=== PATIENT | female | born 1970 | race Caucasian/White ===

== ENCOUNTER 2016-10-03 22:14 | Emergency (ER) | payer OTHER ==
[~2016-10-03] VITALS: Ht 160 cm; Wt 57.6 kg
[2016-10-03] MEDS ORDERED: ESTR25TD TD (22:31)
[2016-10-03] MEDS ORDERED: LEVO88TA3 PO (22:31)
[2016-10-03] MEDS ORDERED: METH10CO PO (22:31)
[2016-10-03] MEDS ORDERED: CYCL10TA PO (22:31)
[2016-10-03] MEDS ORDERED: VITA100037 PO (22:31)
[2016-10-03] MEDS ORDERED: BUPR15TA PO (22:31)
[2016-10-03] MEDS ORDERED: ASPI81TA85 PO (22:31)
[2016-10-03] MEDS ORDERED: PROG100C PO (22:31)
[2016-10-03] MEDS ORDERED: ATOR40TA PO (22:31)
[2016-10-03] MEDS ORDERED: TRAZ100T4 PO (22:31)
[2016-10-03 23:08] LABS: BASO % 0.2 % (0.0-1.0); EOS % 0.9 % (0.0-3.0); LARGE UNSTAINED CELL # 0.1 K/mm3 (0.0-0.4); LARGE UNSTAINED CELL % 1.9 % (0.0-4.0); LYMPH # 2.1 K/mm3 (1.5-4.5); LYMPH % 33.1 % (24.0-44.0); MEAN CORPUSCULAR HEMOGLOBIN 30.6 pg (27.0-33.0); MEAN CORPUSCULAR HGB CONC 33.5 g/dl (32.0-36.5); MEAN CORPUSCULAR VOLUME 91.3 fl (80.0-96.0); MONO # 0.3 K/mm3 (0.0-0.8); MONO % 4.4 % (0.0-5.0); NEUTROPHILS # 3.6 K/mm3 (1.8-7.7); NEUTROPHILS % 59.6 % (36.0-66.0); PLATELET COUNT, AUTOMATED 229 k/mm3 (150-450); RED CELL DISTRIBUTION WIDTH 12.8 % (11.5-14.5); WHITE BLOOD COUNT 6.1 K/mm3 (4.0-10.0)
[2016-10-03 23:26] LABS: ANION GAP 4 MEQ/L (8-16); BLOOD UREA NITROGEN 5 MG/DL (7-18); CALCIUM LEVEL 8.2 MG/DL (8.5-10.1); CARBON DIOXIDE LEVEL 31 MEQ/L (21-32); CHLORIDE LEVEL 105 MEQ/L (98-107); CREATININE FOR GFR 0.65 MG/DL (0.55-1.02); GLOMERULAR FILTRATION RATE > 60.0 (>58); GLUCOSE, FASTING 86 MG/DL (70-105); POTASSIUM SERUM 3.6 MEQ/L (3.5-5.1); SODIUM LEVEL 140 MEQ/L (136-145)
[2016-10-04 00:04] VITALS: BP 124/79
--- NOTE | 2016-10-04 06:07 | ECGEPIP ---
Stationary ECG Study [facility] - ED Test Date: 2016-10-03 Pat Name: GEOFFREY GERMAN Department: Room: - Gender: F Service Engine Repairer: tania : 1970 Requested By: NAM Melton Order Number: [id number] Reading MD: Ilya Grewal Measurements Intervals Brandon Rate: 70 P: 51 CO: 183 QRS: 58 QRSD: 97 T: 45 QT: 428 QTc: 462 Interpretive Statements SINUS RHYTHM INC. RBBB NO PRIORS Electronically Signed On 10-04-2016 6:07:00 EDT by Ilya Grewal
--- NOTE | 2016-10-04 08:17 | REP ---
Portable chest: Single view. History: Chest pain or. Comparison study: No comparison study. No Findings: Lungs are well inflated and clear. The pleural angles are sharp. Heart is not enlarged. Pulmonary vasculature is not increased. Mild degenerative changes seen at the shoulders. Impression: No active disease. Signed by Donte Oreilly MD 10/04/2016 08:09 A
== END 2016-10-04 02:57 | disposition home or self-care (01) ==
LOC: M ED 23:48
DX: R07.89 Other chest pain (principal)

== ENCOUNTER → 2018-10-26 | Outpatient (CLI) | payer OTHER ==
[~2018-10-26] MED LIST: ASPI81TA85 PO; ATOR40TA75 PO; BUPR15TA PO; CYCL10TA PO; ESTR25TD TD; ISOVUE-370 76% 100ML VIAL (Q9967) As Ordered ONE; LEVO88TA3 PO; METH10CO PO; PROG100C PO; TRAZ-163 PO; VITA100067 PO
--- NOTE | 2018-10-27 05:35 | REP ---
Clinical: Chest pain and shortness of breath. Technique: Axial contrast enhanced images from the thoracic inlet to the upper abdomen using pulmonary embolus technique with multiplanar re-formations. 100 ml Isovue 270 intravenous contrast material administered without complication. Findings: The pulmonary vasculature is appropriately enhanced and no filling defects are identified to suggest pulmonary embolus. The thoracic aorta is without aneurysm or dissection. Heart and pericardium appear normal. The bilateral lung morales demonstrate mild posterobasilar dependent changes without consolidation, significant nodule or mass lesion. No pleural effusion. No pneumothorax. Tracheobronchial tree is patent. No adenopathy. Surrounding musculoskeletal structures are intact. Impression: 1. Normal contrast enhanced chest CT using angiographic technique. 2. No evidence for pulmonary embolus. Normal thoracic aorta without aneurysm or dissection. 3. No acute mediastinal or pleuroparenchymal process. Electronically Signed by David García MD 10/27/2018 05:26 A
== END ==
LOC: M RAD 15:05
PROVIDERS: ATTEND Nurse Practitioner
DX: R06.02 Shortness of breath (principal); R07.89 Other chest pain
CPT/HCPCS: 71275; Q9967

== ENCOUNTER → 2019-01-23 | Outpatient (CLI) | payer OTHER ==
[~2019-01-23] MED LIST changes: -ISOVUE-370 76% 100ML VIAL (Q9967) As Ordered ONE; -PROG100C PO; +PROG1CAP8 PO
--- NOTE | 2019-01-23 11:29 | REP ---
Clinical: Hypothyroidism. Technique: Real time kaufman scale and color evaluation using curved array transducer. Findings: The thyroid gland is essentially normal in contour, size, and parenchymal echogenicity. Right lobe measures 4.5 x 1.1 x 0.8 cm. Isthmus measures 3.0 mm in width. Left lobe measures 3.7 x 1.2 x 0.8 cm and includes a 2.4 mm benign appearing cyst. Impression: Essentially normal thyroid ultrasound.
--- NOTE | 2019-01-25 08:40 | DEXA ---
AP SPINE L1 - L4 1.449 2.1 2.3 LT FEMUR TOTAL 1.029 0.2 0.6 LT NECK 0.978 -0.4 0.3 RT FEMUR TOTAL 1.050 0.3 0.7 RT NECK 1.007 -0.2 0.5 TOTAL BODY TOTAL OTHER COMMENTS: Normal bone densitometry of the spine and hips. FOLLOW-UP: Recommendation for the next bone density exam: 5 years. SORAYA
== END ==
LOC: M WHC 09:49
PROVIDERS: ATTEND Nurse Practitioner Primary Care
DX: E03.9 Hypothyroidism, unspecified (principal); M81.0 Age-related osteoporosis without current pathological fracture

== ENCOUNTER → 2019-02-21 | Outpatient (CLI) | payer OTHER ==
[2019-02-21 13:53] LABS: FREE T4 0.94 NG/DL (0.76-1.46)
[2019-02-21 13:54] LABS: CORTISOL BASELINE 5.9 UG/DL (4.3-22.4); TOTAL 25(OH) VITAMIN D 32.3 NG/ML (30.0-100.0)
[2019-02-21 13:55] LABS: FOLLICLE STIMULATING HORMONE 88.2 mIU/mL; LUTEINIZING HORMONE 61.1 mIU/mL; PROLACTIN 7.6 NG/ML; THYROID PEROXIDASE ANTIBODY < 28.0 U/ML (<60.0)
== END ==
LOC: M LAB 12:23
PROVIDERS: ATTEND Nurse Practitioner Primary Care
DX: E03.9 Hypothyroidism, unspecified (principal); E55.9 Vitamin D deficiency, unspecified

== ENCOUNTER → 2020-05-07 | Outpatient (CLI) | payer OTHER ==
[~2020-05-07] MED LIST changes: -ASPI81TA85 PO; +ASPI81TA86 PO; +CYCL-707 PO; -CYCL10TA PO; -TRAZ-163 PO; +TRAZ-257 PO
--- NOTE | 2020-05-07 19:10 | REPVR ---
PROCEDURE INFORMATION: Exam: MR Cervical Spine Without Contrast Exam date and time: 05/07/2020 6:48 PM Age: 49 years old Clinical indication: Pain; Cervicalgia; Additional info: Radiculopathy, cervical region TECHNIQUE: Imaging protocol: Multiplanar magnetic resonance images of the cervical spine without contrast. COMPARISON: SOFT TISSUE H/N THYROID US 01/23/2019 9:04 AM FINDINGS: Nonspecific straightening of the cervical lordosis. Vertebral body height and AP alignment is preserved. Multilevel disc desiccation with mild disc space narrowing. No evidence of discitis/osteomyelitis. There is mild degenerative endplate signal. No pathologic cord signal. No epidural fluid collection. C2-C3: No significant central or foraminal stenosis. C3-C4: No significant central canal stenosis. Mild uncinate spurring contributes to mild left foraminal stenosis. C4-C5: Kipa-ks-nsovoqpk disc osteophyte complex with bilateral uncinate spurring. There is qasz-oz-vebqriqs central canal stenosis, qcbb-al-shbwkmrb right foraminal stenosis and moderate left foraminal stenosis. C5-C6: Vuoa-mv-yjjcswpq disc osteophyte complex with superimposed small caudally migrating extrusion. There is bilateral facet joint arthropathy. Findings result in moderate central canal stenosis and moderate to severe bilateral foraminal stenosis. C6-C7: Efew-zk-wjsxiasa disc osteophyte complex with uncinate spurring greater on the left. There is mild central canal stenosis and severe left foraminal stenosis. C7-T1: No significant central or foraminal stenosis. IMPRESSION: 1. Degenerative findings as above including mild to moderate central canal stenosis at C4-C5, moderate central canal stenosis at C5-C6 and mild central canal stenosis at C6-C7. 2. No pathologic cord signal. Electronically signed by: Lucas Fischer On 05/07/2020 19:10:21 PM
== END ==
LOC: M RAD 17:52
PROVIDERS: ATTEND Pain Medicine Interventional Pain Medicine
DX: M54.12 Radiculopathy, cervical region (principal); M25.78 Osteophyte, vertebrae; M48.02 Spinal stenosis, cervical region

== ENCOUNTER → 2020-08-29 | Outpatient (CLI) | payer OTHER ==
--- NOTE | 2020-08-29 16:27 | REP ---
INDICATION: POSTMENOPAUSAL BLEEDING COMPARISON: None. TECHNIQUE: Transabdominal pelvic ultrasound followed by transvaginal examination for better evaluation of the endometrium and adnexa. FINDINGS: Bladder is unremarkable and measures 8.6 x 11.7 x 5.0 cm. Normal anteverted uterus measures 8.5 x 3.4 x 3.9 cm. The endometrial complex measures 6 mm thickness. 10 mm and 7 mm nabothian cysts at the cervix and lower uterine segment noted respectively. Bilateral ovaries are not visualized on either transabdominal or transvaginal imaging. No pelvic fluid or adnexal mass lesion. IMPRESSION: Ovaries not visualized. Small nabothian cysts up to 10 mm. No further abnormality appreciated. <Electronically signed by David García > 08/29/20 [id number]
== END ==
LOC: M RAD 15:44
PROVIDERS: ATTEND Obstetrics & Gynecology
DX: N95.0 Postmenopausal bleeding (principal)

== ENCOUNTER → 2020-11-19 | Outpatient (CLI) | payer OTHER ==
--- NOTE | 2020-11-19 17:28 | REP ---
INDICATION: LEFT LEG SWELLING TENDERNESS R/O DVT. COMPARISON: None. TECHNIQUE: Left lower extremity duplex venous sonography. Scanning is performed from the groin to the ankle. FINDINGS: The deep veins are anechoic and fully compressible from the groin to the ankle in the left lower extremity. Color flow imaging is homogeneous. Spectral Doppler interrogation demonstrates intact respiratory variation in flow and normal manual augmentation of flow. There is no evidence of deep vein thrombosis. IMPRESSION: Negative left lower extremity duplex venous ultrasound. No evidence of deep vein thrombosis. <Electronically signed by Qamar Oreilly > 11/19/20 [id number]
== END ==
LOC: M RAD 15:58
PROVIDERS: ATTEND Physician Assistant
DX: R22.42 Localized swelling, mass and lump, left lower limb (principal)

== ENCOUNTER → 2020-12-25 | Outpatient (CLI) | payer OTHER ==
[~2020-12-25] MED LIST changes: +CLAR10TA7 PO; +PREG50CA PO
--- NOTE | 2020-12-25 21:38 | REPVR ---
PROCEDURE INFORMATION: Exam: MR Lumbar Spine Without Contrast Exam date and time: 12/25/2020 3:02 PM Age: 50 years old Clinical indication: Low back pain; Additional info: Radiculopathy lumbar region TECHNIQUE: Imaging protocol: Multiplanar magnetic resonance images of the lumbar spine without intravenous contrast. COMPARISON: US PELVIC NON-OB COMPLETE 08/29/2020 3:46 PM FINDINGS: Vertebral body heights are maintained. Degenerative disc height loss at L5-S1. Suspected small vertebral body hemangioma at L1. No cord compression. No abnormal cord signal. Conus medullaris terminates at the L1 level. Paravertebral soft tissues are unremarkable. L1-L2: No significant canal or foraminal narrowing. L2-L3: No significant canal or foraminal narrowing. L3-L4: Broad-based disc bulge and facet hypertrophy cause mild to moderate canal narrowing. Slight effacement of the bilateral lateral recesses. Mild bilateral foraminal narrowing. L4-L5: Broad-based disc bulge and facet hypertrophy cause mild canal narrowing and mild bilateral foraminal narrowing. L5-S1: Central disc protrusion superimposed over broad-based disc bulge causes focal mild canal narrowing. Along with facet hypertrophy there is mild right and moderate left foraminal narrowing. Slight impingement upon the exiting left L5 nerve root. IMPRESSION: Multilevel spondylotic changes of the lumbar spine including moderate left foraminal narrowing at L5-S1 causing slight impingement upon the exiting left L5 nerve root, as detailed above. Electronically signed by: Jhoan Manley On 12/25/2020 21:38:05 PM
== END ==
LOC: M PLAIMG 14:18
PROVIDERS: ATTEND Nurse Practitioner Family
DX: M51.16 Intervertebral disc disorders with radiculopathy, lumbar region (principal); M47.817 Spondylosis without myelopathy or radiculopathy, lumbosacral region

== ENCOUNTER → 2020-12-26 | Outpatient (CLI) | payer OTHER | LOC: M LABSMTC 10:24 | PROVIDERS: ATTEND Anesthesiology | DX: Z01.818 Encounter for other preprocedural examination (principal); Z20.822 Contact with and (suspected) exposure to COVID-19 ==

== ENCOUNTER 2020-12-31 13:47 | Day surgery (SDC) | payer OTHER ==
[~2020-12-31] VITALS: Ht 160 cm; Wt 71.1 kg
[~2020-12-31 13:47] MED LIST changes: +LR 1,000 ML IV ONE
[2020-12-31 14:24] LABS: HEMATOCRIT 44.1 % (36.0-47.0); HEMOGLOBIN 14.5 g/dl (12.0-15.5); MEAN CORPUSCULAR HEMOGLOBIN 30.3 pg (27.0-33.0); MEAN CORPUSCULAR HGB CONC 32.9 g/dl (32.0-36.5); MEAN CORPUSCULAR VOLUME 92.3 fl (80.0-96.0); PLATELET COUNT, AUTOMATED 272 10^3/uL (150-450); RED BLOOD COUNT 4.78 10^6/uL (4.00-5.40); WHITE BLOOD COUNT 10.7 10^3/uL (4.0-10.0)
[2020-12-31] MEDS ORDERED: ACETAMINOPHEN 650 MG SUPP As Ordered ONE (15:46)
[2020-12-31] MEDS ORDERED: fentaNYL 100 MCG/2 ML INJECTION (J3010) As Ordered ONE (16:22)
[2020-12-31] MEDS ORDERED: LIDOCAINE 2% 100MG/5ML SDV (FOR ANES.) As Ordered ONE (16:22)
[2020-12-31] MEDS ORDERED: propofoL 200 MG/20 ML VIAL As Ordered ONE (16:22)
[2020-12-31] MEDS ORDERED: MIDAZOLAM INJ 2MG/2ML VIAL (J2250 PER 1MG) As Ordered ONE (16:22)
[2020-12-31] MEDS ORDERED: dexameTHASONE 4 MG/ML 1ML VIAL (J1100 PER 1MG) As Ordered ONE (16:22)
[2020-12-31] MEDS ORDERED: ONDANSETRON 4MG/2ML VIAL As Ordered ONE (16:22)
[2020-12-31] MEDS ORDERED: KETOROLAC 60MG 2ML VIAL As Ordered ONE (17:02)
[2020-12-31] MEDS ORDERED: PERCOCET 5MG/325MG TAB PO PRN ×2 (17:20→17:40)
[2020-12-31] MEDS ORDERED: LR 1,000 ML IV SCH (17:20)
[2020-12-31] MEDS ORDERED: METOCLOPRAMIDE INJ 10MG/2ML VIAL (J2765 PER 1) IV PRN (17:20)
[2020-12-31] MEDS ORDERED: fentaNYL 100 MCG/2 ML INJECTION (J3010) IV PRN (17:20)
[2020-12-31] MEDS ORDERED: ONDANSETRON 4MG/2ML VIAL IV PRN (17:20)
[2020-12-31 18:15] VITALS: BP 135/72
[2021-01-01] MEDS ORDERED: IBUPROFEN 800 MG TAB PO SCH
--- NOTE | 2021-01-01 08:47 | RO ---
OPERATIVE NOTE DATE OF OPERATION: 12/31/2020 Alexa is a 50-year-old female with excessive menstruation. After counseling decision was made for D&C, hysteroscopy. PREOPERATIVE DIAGNOSIS: Excessive menstruation. POSTOPERATIVE DIAGNOSIS: Excessive menstruation. PROCEDURES: 1. D&C. 2. Hysteroscopy. 3. NovaSure ablation. SURGEON: Atif Keys Do TAB MACHINE OPERATOR: None. ANESTHESIA: General. COMPLICATIONS: None. ESTIMATED BLOOD LOSS: Less than 10 mL. FINDINGS: On hysteroscopy normal appearing endometrial cavity. The ablation process lasted 1 minute 9 seconds. DESCRIPTION OF PROCEDURE: After obtaining informed consent, the patient was taken to the operating room where general anesthetic was found to be adequate. She was prepped and draped in usual sterile fashion in dorsal lithotomy position. Straight catheterization of the bladder was performed for 150 mL of clear urine. We then placed weighted speculum on posterior fornix and vagina. Using Combs retractor the anterior lip of the cervix was grasped with single tooth tenaculum. The uterus was sounded to approximate length of 8.5 to 9 cm, giving total cavity length of 5.5. The cervix was then serially dilated. Hysteroscope was inserted with the above noted findings. Sharp curettage of the endometrial lining was then done and tissue sent to pathology. NovaSure endometrial device was then inserted, the cavity length adjusted to 5.5, the cavity width to 3, cavity test was performed. After passing the cavity test the device was enabled and the ablator cycle lasted 1 minute 9 seconds. Good ablative process noted, good hemostasis noted. The patient tolerated the procedure well. She was then transferred to recovery room in stable condition. cc: [facility]
== END 2020-12-31 18:20 | disposition home or self-care (01) ==
LOC: M SDC 13:47
PROVIDERS: ATTEND Obstetrics & Gynecology
DX: N95.0 Postmenopausal bleeding (principal); E05.90 Thyrotoxicosis, unspecified without thyrotoxic crisis or storm; E78.00 Pure hypercholesterolemia, unspecified; M51.9 Unspecified thoracic, thoracolumbar and lumbosacral intervertebral disc disorder; Z87.891 Personal history of nicotine dependence; Z88.1 Allergy status to other antibiotic agents; Z88.5 Allergy status to narcotic agent; Z88.2 Allergy status to sulfonamides; Z88.8 Allergy status to other drugs, medicaments and biological substances; Z91.040 Latex allergy status; Z79.899 Other long term (current) drug therapy; Z79.890 Hormone replacement therapy
CPT/HCPCS: 36415; 58563; 85027; 88304; J1100; J1885; J2250; J2405; J3010

== ENCOUNTER → 2021-10-05 | Outpatient (CLI) | payer OTHER ==
[~2021-10-05] MED LIST changes: -LR 1,000 ML IV ONE
== END ==
LOC: M LAB 14:07 → M RAD 14:07
PROVIDERS: ATTEND Pain Medicine Interventional Pain Medicine
DX: M47.812 Spondylosis without myelopathy or radiculopathy, cervical region (principal); M43.22 Fusion of spine, cervical region

== ENCOUNTER → 2022-04-05 | Outpatient (CLI) | payer OTHER ==
[~2022-04-05] MED LIST changes: +PROHANCE 279.3MG/ML 15ML VIAL As Ordered ONE
== END ==
LOC: M RAD 09:37
PROVIDERS: ATTEND Nurse Practitioner Family
DX: M54.12 Radiculopathy, cervical region (principal)
CPT/HCPCS: 72156; A9576

== ENCOUNTER 2022-08-11 08:00 | Emergency (ER) | payer OTHER ==
[~2022-08-11] VITALS: Ht 160 cm; Wt 68.2 kg
[~2022-08-11 08:00] MED LIST changes: -PROHANCE 279.3MG/ML 15ML VIAL As Ordered ONE
[2022-08-11] MEDS ORDERED: DERMABOND TOPICAL SKIN ADHESIVE TOP ONE (09:10)
[2022-08-11] MEDS ORDERED: BOOSTRIX/ADACEL VACCINE (DIPHTH/PERTUSS/ACELL/TETANUS) 0.5ML SYR IM.IMMUN ONE (09:10)
[2022-08-11] MEDS ORDERED: AUGMENTIN 875 MG TAB PO ONE (10:30)
[2022-08-11 10:54] VITALS: BP 136/85
[2022-08-11] MEDS ORDERED: AMOX875T2 PO (10:57)
== END 2022-08-11 11:09 | disposition home or self-care (01) ==
LOC: M ED 08:00
DX: S01.411A Laceration without foreign body of right cheek and temporomandibular area, initial encounter (principal); S00.11XA Contusion of right eyelid and periocular area, initial encounter; S02.31XA Fracture of orbital floor, right side, initial encounter for closed fracture; W01.198A Fall on same level from slipping, tripping and stumbling with subsequent striking against other object, initial encounter; Y92.219 Unspecified school as the place of occurrence of the external cause; Z79.890 Hormone replacement therapy; Z79.899 Other long term (current) drug therapy; Z88.1 Allergy status to other antibiotic agents; Z88.5 Allergy status to narcotic agent; Z88.2 Allergy status to sulfonamides; Z91.040 Latex allergy status

== ENCOUNTER → 2022-09-04 | Outpatient (REF) | payer OTHER ==
[~2022-09-04] MED LIST changes: +AMOX875T2 PO; +METH5TA PO; +ROPI0.5T3 PO
== END ==
LOC: M LAB REF 12:47
PROVIDERS: ATTEND Nurse Practitioner Family
DX: R19.7 Diarrhea, unspecified (principal)

== ENCOUNTER 2022-10-22 10:42 | Day surgery (SDC) | payer OTHER ==
[~2022-10-22] VITALS: Ht 160 cm; Wt 73.5 kg
[~2022-10-22 10:42] MED LIST changes: +LIDOCAINE 2% 100MG/5ML SDV (FOR ANES.) As Ordered ONE; +NS 1,000 ML IV ONE; +PREG75CA2 PO; +propofoL 200 MG/20 ML VIAL As Ordered ONE
[2022-10-22 13:00] VITALS: BP 134/79
== END 2022-10-22 13:13 | disposition home or self-care (01) ==
LOC: M OPP 10:42
PROVIDERS: ATTEND Internal Medicine Gastroenterology
DX: Z12.11 Encounter for screening for malignant neoplasm of colon (principal); K63.5 Polyp of colon; K64.4 Residual hemorrhoidal skin tags; K64.8 Other hemorrhoids; Z87.891 Personal history of nicotine dependence; Z79.02 Long term (current) use of antithrombotics/antiplatelets; Z79.1 Long term (current) use of non-steroidal anti-inflammatories (NSAID); Z79.82 Long term (current) use of aspirin; Z79.84 Long term (current) use of oral hypoglycemic drugs; Z79.891 Long term (current) use of opiate analgesic; Z79.899 Other long term (current) drug therapy; Z88.1 Allergy status to other antibiotic agents; Z88.2 Allergy status to sulfonamides; Z88.5 Allergy status to narcotic agent

== ENCOUNTER → 2024-05-28 | Outpatient (CLI) | payer OTHER ==
[~2024-05-28] MED LIST changes: -LIDOCAINE 2% 100MG/5ML SDV (FOR ANES.) As Ordered ONE; -NS 1,000 ML IV ONE; -PREG75CA2 PO; +PREG75CA3 PO; -ROPI0.5T3 PO; +ROPI0.5T33 PO; -propofoL 200 MG/20 ML VIAL As Ordered ONE
[2024-05-28 12:24] LABS: PLATELET COUNT, AUTOMATED 258 10^3/uL (150-450)
[2024-05-28 12:37] LABS: INR 0.91; PARTIAL THROMBOPLASTIN TIME 28.2 SECONDS (24.8-34.2); PROTHROMBIN TIME 12.6 SECONDS (12.5-14.5)
== END ==
LOC: M PLALAB 09:42
PROVIDERS: ATTEND Physical Medicine & Rehabilitation
DX: Z01.812 Encounter for preprocedural laboratory examination (principal)